=== PATIENT | male | born 1975 ===

== ENCOUNTER 2017-02-12 16:11 | Emergency (ER) | payer OTHER ==
[2017-02-12 16:33] VITALS: TEMP 97.6
[2017-02-12] MEDS ORDERED: METOPROLOL TARTRATE 25 MG TAB PO ONE (17:31)
[2017-02-12] MEDS ORDERED: METOPROLOL TARTRATE 25 MG TAB ONE (17:34)
[2017-02-12 18:56] VITALS: BP 121/79; PULSE 64; RESP 16; O2SAT 97
== END 2017-02-12 18:46 | disposition home or self-care (01) ==
LOC: ED 16:11
DX: I49.3 Ventricular premature depolarization (principal)
CPT/HCPCS: 36415; 83735; 84484; 85378; 99283